=== PATIENT | male | born 2000 | race African-American/Black ===

== ENCOUNTER 2023-06-13 19:41 | Emergency (ER) | payer MEDICAID, OTHER ==
[~2023-06-13] VITALS: Ht 170.2 cm; Wt 85.4 kg
[2023-06-13] MEDS ORDERED: DexAMETHasone SOD PHOS 10MG/1ML VIAL INJ IM ONE (20:30)
[2023-06-13] MEDS ORDERED: cefTRIAXone SOD 1,000 MG VL IM ONE (20:30)
[2023-06-13] MEDS ORDERED: IBUP-1456 PO (20:32)
[2023-06-13] MEDS ORDERED: PRED20TA2 PO (20:32)
[2023-06-13 21:13] VITALS: BP 129/74; PULSE 87; RESP 17; TEMP 98; O2SAT 98
== END 2023-06-13 21:15 | disposition home or self-care (01) ==
LOC: ER 19:46
DX: J03.90 Acute tonsillitis, unspecified (principal); Z98.890 Other specified postprocedural states
CPT/HCPCS: 96372; 99284; J0696; J1100

== ENCOUNTER 2023-07-25 20:38 | Emergency (ER) | payer MEDICAID ==
[~2023-07-25] VITALS: Ht 157.5 cm; Wt 77.0 kg
[~2023-07-25 20:38] MED LIST: IBUP-1456 PO; PRED20TA2 PO
[2023-07-25 21:10] VITALS: BP 146/92; PULSE 99; RESP 20; O2SAT 98
[2023-07-25 21:33] LABS: Basophils # (auto) 0.1 10 ^3/uL (0-0.2); Eosinophils # (auto) 0.1 10 ^3/uL (0-0.8); Eosinophils % (auto) 1.2 % (0.0-7.0); Hematocrit 46.8 % (41.0-53.0); Hemoglobin 15.6 g/dL (13.5-17.5); Lymphocytes # (auto) 2.2 10 ^3/uL (0.4-5.4); Lymphocytes % (auto) 40.8 % (10.0-50.0); Mean Corpuscular Hemoglobin 29.2 pg (28.0-32.0); Mean Corpuscular Hgb Conc. 33.4 g/dL (32.0-36.0); Mean Corpuscular Volume 87.6 fL (80.0-100.0); Monocytes # (auto) 0.6 10 ^3/uL (0-1.3); Monocytes % (auto) 10.5 % (0.0-12.0); Neutrophils # (auto) 2.5 10 ^3/uL (1.6-8.6); Neutrophils % (auto) 46.5 % (37.0-80.0); Nucleated Red Blood Cells % 0.3 %; Red Blood Cells 5.35 10^6/uL (4.5-5.90); Red Cell Distribution Width 13.9 % (11.8-14.3); White Blood Cell 5.4 10^3/uL (4.4-10.8)
[2023-07-25 21:51] LABS: Alanine Aminotransferase 22 U/L (7-40); Albumin 5.1 g/dL (3.2-4.8); Alkaline Phosphatase 71 U/L (46-116); Anion Gap 6 (5-15); Aspartate Aminotransferase 24 U/L (13-40); Blood Urea Nitrogen 10 mg/dL (9-23); Calcium 9.8 mg/dL (8.7-10.4); Carbon Dioxide 29 mmol/L (20-30); Chloride 104 mmol/L (98-107); Glucose 97 mg/dL (74-106); Lipase 57 U/L (12-53); Potassium 3.4 mmol/L (3.5-5.1); Sodium 139 mmol/L (136-145)
[2023-07-25 21:52] LABS: Bilirubin, Total 0.8 mg/dL (0.2-1.0); Total Protein 8.2 g/dL (5.7-8.2)
[2023-07-25 22:41] LABS: Urine Amorphous Crystal MOD /hpf (None Seen); Urine Bacteria NONE SEEN /hpf (None Seen); Urine Blood Negative /uL (Negative); Urine Clarity CLOUDY (Clear); Urine Color Yellow (Yellow); Urine Mucus MODERATE (None Seen); Urine Protein, UAD 1+ (Negative); Urine Specific Gravity 1.037 (1.001-1.035); Urine Urobilinogen Normal (Negative); Urine WBC 2 /hpf (0 - 3); Urine pH 5.5 (5.0-8.0)
[2023-07-25] MEDS ORDERED: PANT40TA2 PO (23:44)
[2023-07-25] MEDS ORDERED: HYDR25CA PO (23:44)
[2023-07-25] MEDS ORDERED: DICY10CA PO (23:44)
[2023-07-25] MEDS ORDERED: KETOROLAC TROMETH 60MG/2ML VIAL IM ONE (23:45)
[2023-07-25] MEDS ORDERED: LIDOCAINE VISCOUS 2% 15ML UD PO ONE (23:45)
[2023-07-25] MEDS ORDERED: ACETAMINOPHEN 325 MG TAB PO ONE (23:45)
[2023-07-25] MEDS ORDERED: MAALOX PLUS or MAALOX 30 ML PO ONE (23:45)
[2023-07-25] MEDS ORDERED: LORazepam 0.5 MG TAB PO ONE (23:45)
== END 2023-07-26 05:47 | disposition home or self-care (01) ==
LOC: ER 20:38
DX: R10.30 Lower abdominal pain, unspecified (principal); R07.9 Chest pain, unspecified; R11.2 Nausea with vomiting, unspecified; R06.02 Shortness of breath; K21.9 Gastro-esophageal reflux disease without esophagitis
CPT/HCPCS: 36415; 80053; 81001; 83690; 85025